=== PATIENT | male | born 1945 ===

== ENCOUNTER 2020-12-11 09:46 | Outpatient (CLI) | payer OTHER | END 2020-12-11 09:47 | disposition home or self-care (01) | LOC: NUCLEAR 09:46 | PROVIDERS: ATTEND Internal Medicine | DX: E85.4 Organ-limited amyloidosis (principal); I50.42 Chronic combined systolic (congestive) and diastolic (congestive) heart failure | CPT/HCPCS: 78469; A9538 ==